=== PATIENT | female | born 1970 | race Caucasian/White ===

== ENCOUNTER 2017-02-20 04:42 | Emergency (ER) | payer BC ==
[2017-02-20] MEDS ORDERED: Ondansetron 4 MG/2 ML SDV IVPUSH ONE (05:00)
[2017-02-20] MEDS ORDERED: HYDROmorphone 1 MG/ML Syringe IVPUSH ONE ×2 (05:00→08:57)
[2017-02-20] MEDS: Sodium Chloride 0.9% 10 ML Syringe FLUSH PRN ×2 (05:07→09:03)
[2017-02-20 05:31] LABS: CHLORIDE,CL 101 mmol/L (98-107); SODIUM,NA 137 mmol/L (136-145)
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
[2017-02-20] MEDS ORDERED: Iopamidol 612 MG/ML 100 ML Bottle IVPUSH ONE (05:52)
[2017-02-20] MEDS ORDERED: HYDROmorphone 1 MG/ML Syringe IM ONE (06:31)
[2017-02-20 08:19] VITALS: BP 104/65
[2017-02-20] MEDS ORDERED: Sodium Chloride 0.9% 1,000 ML IV ONE (08:58)
== END 2017-02-20 09:25 ==
LOC: LL.ED 04:42
DX: K35.3 Acute appendicitis with localized peritonitis (principal); N39.0 Urinary tract infection, site not specified; M19.90 Unspecified osteoarthritis, unspecified site; F17.210 Nicotine dependence, cigarettes, uncomplicated; E03.9 Hypothyroidism, unspecified; E11.9 Type 2 diabetes mellitus without complications; G43.909 Migraine, unspecified, not intractable, without status migrainosus; Z88.2 Allergy status to sulfonamides; Z91.048 Other nonmedicinal substance allergy status; Z98.51 Tubal ligation status
CPT/HCPCS: 36415; 74020; 74177; 80053; 81001; 81025; 85025; 96374; 96375; 96376; 99285; J1170; J2405; J7030; J7050; Q9967

== ENCOUNTER 2017-03-22 08:32 | Emergency (ER) | payer BC ==
[2017-03-22 08:41] VITALS: BP 103/61
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
[2017-03-22 09:43] LABS: CHLORIDE,CL 105 mmol/L (98-107); SODIUM,NA 139 mmol/L (136-145)
[2017-03-22] MEDS ORDERED: Iopamidol 612 MG/ML 100 ML Bottle IVPUSH ONE (11:20)
== END 2017-03-22 12:40 | disposition home or self-care (01) ==
LOC: LL.ED 08:32
DX: R10.31 Right lower quadrant pain (principal); M19.90 Unspecified osteoarthritis, unspecified site; F17.210 Nicotine dependence, cigarettes, uncomplicated; Z88.2 Allergy status to sulfonamides; Z88.8 Allergy status to other drugs, medicaments and biological substances; Z79.899 Other long term (current) drug therapy; Z90.49 Acquired absence of other specified parts of digestive tract
CPT/HCPCS: 36000; 36415; 74177; 80048; 81001; 83605; 85025; 86140; 99284; Q9967

== ENCOUNTER 2017-10-04 10:33 | Observation (INO) | payer BC ==
[2017-10-04] MEDS ORDERED: Famotidine 20 MG/2 ML SDV IVPUSH ONE (10:47)
--- NOTE | 2017-10-04 10:48 | EDM.PDOC ---
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 Annotation/Comment:: Persistent intermittent vaginal spotting and bleeding as above with history of iron deficiency in the past. Iron studies to be conducted with reinitiation of iron supplementation. Mild postoperative bleeding may also be a component with no significant ecchymosis, etc. at operations site. Qualifiers: Anemia type: iron deficiency Iron deficiency anemia type: other iron deficiency Qualified Code(s): D50.8 - Other iron deficiency anemias (5) Hypomagnesemia SNOMED Code(s): 593605990 Code(s): E83.42 - HYPOMAGNESEMIA Status: Acute Priority: Medium Current Visit: Yes Onset Date: 06/12/15 Annotation/Comment:: Reinitiate magnesium oxide supplement with close followup by regular physician (6) Hypoalbuminemia SNOMED Code(s): 420096059 Code(s): E88.09 - [facility] DISORDERS OF PLASMA-PROTEIN METABOLISM, NEC Status: Chronic Priority: Medium Current Visit: Yes Annotation/Comment:: Initiate high-protein Glucerna supplements as snacks (7) Nephrolithiasis SNOMED Code(s): 56386035 Code(s): N20.0 - CALCULUS OF KIDNEY Status: Acute Priority: Medium Current Visit: Yes Onset Date: 10/04/17 Annotation/Comment:: Left-sided nephrolithiasis as above. Nonsymptomatic. Uric acid level is normal. Patient encouraged to drink plenty of fluids in the future to avoid colic. (8) Osteoarthritis SNOMED Code(s): 257383225 Code(s): M19.90 - UNSPECIFIED OSTEOARTHRITIS, UNSPECIFIED SITE Status: Chronic Priority: Medium Current Visit: Yes Annotation/Comment:: History of rheumatoid arthritis with arthritis otherwise stable by patient history. Note recent cervical surgery as above. Qualifiers: Osteoarthritis location: multiple joints Osteoarthritis type: primary Qualified Code(s): M15.0 - Primary generalized (osteo)arthritis (9) COPD (chronic obstructive pulmonary disease) SNOMED Code(s): 69624875 Code(s): J44.9 - CHRONIC OBSTRUCTIVE PULMONARY DISEASE, UNSPECIFIED Status : Chronic Priority: Medium Current Visit: Yes Onset Date: 10/04/17 Annotation/Comment:: COPD by chest x-ray with no recent fever or bronchitic type symptoms. Consider PFTs on an outpatient basis. Qualifiers: COPD type: emphysema Emphysema type: panlobular Qualified Code(s): J43.1 - Panlobular emphysema - Problem List Review Problem List Initiated/Reviewed/Updated: Yes - My Orders Last 24 Hours: My Active Orders 10/04/17 10:46 PROLACTIN [REF] Stat 10/04/17 10:47 Sodium Chloride 0.9% [Saline Flush] 10 ml FLUSH ASDIRECTED PRN Resuscitation Status Stat 10/04/17 10:48 Cardiac Monitoring [RC] . DIRECTED EKG Documentation Completion [RC] ASDIRECTED Oxygen Therapy, ED [RC] CONTINUOUS Peripheral IV Care [RC] . DIRECTED Pulse Oximetry [RC] CONTINUOUS Up With Assistance [RC] PFP Vital Signs [RC] PFP Obtain Past Medical Record [OM.PC] Urgent Peripheral IV Insertion Adult [OM.PC] Stat 10/04/17 10:49 Abdomen Series w Chest 1V [CR] Stat 10/04/17 12:23 Chest PE [Ang Chest] [CT] Stat 10/04/17 Breakfast Nothing per Oral Now Diet [DIET] - Assessment/Plan Admission H&P: Please use this note as an admission H&P Last 24 Hours: My Active Orders 10/04/17 10:46 PROLACTIN [REF] Stat 10/04/17 10:47 Sodium Chloride 0.9% [Saline Flush] 10 ml FLUSH ASDIRECTED PRN Resuscitation Status Stat 10/04/17 10:48 Cardiac Monitoring [RC] . DIRECTED EKG Documentation Completion [RC] ASDIRECTED Oxygen Therapy, ED [RC] CONTINUOUS Peripheral IV Care [RC] . DIRECTED Pulse Oximetry [RC] CONTINUOUS Up With Assistance [RC] PFP Vital Signs [RC] PFP Obtain Past Medical Record [OM.PC] Urgent Peripheral IV Insertion Adult [OM.PC] Stat 10/04/17 10:49 Abdomen Series w Chest 1V [CR] Stat 10/04/17 12:23 Chest PE [Ang Chest] [CT] Stat 10/04/17 Breakfast Nothing per Oral Now Diet [DIET] Assessment:: As above Plan: As above. Extensive precautions were given to the patient, who is in agreement with the treatment plan. The patient's condition is stable enough for observation status and general supervision. Oamri vivas physician assuming care in the a.m.
[2017-10-04 11:19] LABS: CHLORIDE,CL 102 mmol/L (98-107); SODIUM,NA 138 mmol/L (136-145)
[2017-10-04] MEDS ORDERED: Iopamidol 755 Mg/ML 100 ML Bottle IVPUSH ONE (12:33)
[2017-10-04] MEDS ORDERED: Famotidine 20 MG/2 ML SDV ONE (13:21)
[2017-10-04] MEDS ORDERED: Sodium Chloride 0.9% 10 ML Syringe FLUSH PRN (14:57)
[2017-10-04] MEDS ORDERED: Acetaminophen/HYDROcodone 325-7.5 MG Tab PO PRN (14:57)
[2017-10-04] MEDS ORDERED: Magnesium Citrate Solution 296 ML Bottle PO ONE (15:00)
[2017-10-04] MEDS ORDERED: Polyethylene Glycol 3350 Powder 17 GM Packet PO ONE (15:00)
[2017-10-04] MEDS: Acetaminophen 325 MG Tab PO PRN ×2 (16:03→21:32)
[2017-10-04] MEDS: Gabapentin 300 MG Cap PO SCH (17:12)
[2017-10-04] MEDS: Magnesium Oxide 400 MG Tab PO SCH (17:12)
[2017-10-04] MEDS: Baclofen 10 MG Tab PO SCH (17:12)
[2017-10-04] MEDS: Ferrous Sulfate 325 MG Tab PO SCH (17:12)
[2017-10-04] MEDS: Ondansetron 4 MG Tab.DIS PO PRN (18:01)
[2017-10-04] MEDS: Furosemide 40 MG/4 ML VIAL IVPUSH SCH (18:42)
[2017-10-04] MEDS: Sodium Chloride 0.9% 10 ML Syringe FLUSH PRN (18:42)
[2017-10-04] MEDS: Amitriptyline 25 MG Tab PO SCH (19:47)
[2017-10-04] MEDS: Potassium Chloride 20 MEQ Tab.ER PO SCH (19:47)
[2017-10-05] MEDS: Acetaminophen 325 MG Tab PO PRN ×2 (02:57→20:35)
[2017-10-05] MEDS: Sodium Chloride 0.9% 10 ML Syringe FLUSH PRN (02:57)
[2017-10-05] MEDS: Furosemide 40 MG/4 ML VIAL IVPUSH SCH ×3 (02:57→17:31)
[2017-10-05 07:52] LABS: CHLORIDE,CL 99 mmol/L (98-107); SODIUM,NA 139 mmol/L (136-145)
[2017-10-05] MEDS: Baclofen 10 MG Tab PO SCH ×2 (09:25→17:28)
[2017-10-05] MEDS: Gabapentin 300 MG Cap PO SCH ×3 (09:25→17:28)
[2017-10-05] MEDS: Omeprazole 20 MG Cap.CR PO SCH (09:26)
[2017-10-05] MEDS: Ferrous Sulfate 325 MG Tab PO SCH ×2 (09:26→17:41)
[2017-10-05] MEDS: Potassium Chloride 20 MEQ Tab.ER PO SCH ×3 (09:26→17:28)
[2017-10-05] MEDS: Magnesium Oxide 400 MG Tab PO SCH (17:29)
--- NOTE | 2017-10-05 18:33 | PCM.PN ---
- General Info Date of Service: 10/05/17 Admission Dx/Problem (Free Text): Syncope Subjective Update: No further episodes of syncope noted. Has had several bowel movements but still feels constipated. Functional Status: Reports: Pain Controlled, Tolerating Diet, Ambulating, Urinating. Denies: New Symptoms Pain Score: 0 - Review of Systems General: Reports: Fatigue. Denies: Fever, Chills, Night Sweats, Appetite HEENT: Reports: No Symptoms Pulmonary: Reports: No Symptoms Cardiovascular: Reports: No Symptoms Gastrointestinal: Reports: Constipation, Decreased Appetite. Denies: Abdominal Pain, Diarrhea, Difficulty Swallowing, Hematochezia, Nausea, Vomiting Genitourinary: Reports: No Symptoms Musculoskeletal: Reports: Other (No change in baseline pain. Recent cervical fusion, has R.A. ) Skin: Reports: No Symptoms Neurological: Denies: Confusion, Dizziness, Headache, Syncope, Difficulty Walking, Weakness, Change in Speech, Gait Disturbance Psychiatric: Reports: No Symptoms - Patient Data Vitals - Most Recent: Last Vital Signs Temp 37.1 C 10/05/17 16:00 Pulse 100 10/05/17 16:00 Resp 18 10/05/17 16:00 BP 118/78 10/05/17 16:00 Pulse Ox 94 L 10/05/17 16:00 Weight - Most Recent: 72.892 kg I&O - Last 24 Hours: Intake & Output 10/05/17 10/05/17 10/05/17 06:59 14:59 22:59 Intake Total 1080 300 Output Total 5767 978 5928 Balance -1100 480 -700 Lab Results Last 24 Hours: Laboratory Results - last 24 hr 10/04/17 10/04/17 10/05/17 Range/Units 10:46 21:15 06:37 WBC 8.1 (4.0-10.2) K/uL RBC 4.05 (3.77-5.09) M/uL Hgb 12.3 D (11.7-15.5) g/dL Hct 37.1 (34.0-46.0) % MCV 91.6 (84.0-98.0) fL MCH 30.4 (28.2-33.3) pg MCHC 33.2 (31.7-36.0) g/dL RDW 12.4 (11.2-14.1) % Plt Count 367 H (150-350) K/uL Neut % (Auto) 66.3 (45.0-80.0) % Lymph % (Auto) 19.3 (10.0-50.0) % [place] % (Auto) 9.0 (2.0-14.0) % Eos % (Auto) 5.2 H (0.0-5.0) % Baso % (Auto) 0.2 (0.0-2.0) % Neut # (Auto) 5.36 (1.40-7.00) K/uL Lymph # (Auto) 1.56 (0.50-3.50) K/uL [place]row # (Auto) 0.73 (0.00-1.00) K/uL Eos # (Auto) 0.42 (0.00-0.50) K/uL Baso # (Auto) 0.02 (0.00-0.20) K/uL D-Dimer, Quantitative (0-400) ng/mL Sodium (136-145) mmol/L Potassium (3.5-5.1) mmol/L Chloride (98-107) mmol/L Carbon Dioxide (21.0-32.0) mmol/L BUN (7-18) mg/dL Creatinine (0.51-1.17) mg/dL Est Cr Clr Drug Dosing mL/min Estimated GFR (MDRD) mL/min Glucose (74-106) mg/dL Hemoglobin A1c (4.3-5.7) % Calcium (8.5-10.1) mg/dL Total Bilirubin (0.2-1.0) mg/dL AST (15-37) U/L ALT (12-78) U/L Alkaline Phosphatase (46-116) IU/L Creatine Kinase 65 (26-308) U/L Creatine Kinase Index 1.8 (0.0-2.5) % CK-MB (CK-2) 1.20 (0.00-3.60) ng/mL Troponin I 0.000 (0.000-0.056) ng/mL Total Protein (6.4-8.2) g/dL Albumin (3.4-5.0) g/dL Triglycerides (30-150) mg/dL Cholesterol (100-200) mg/dL LDL Cholesterol, Calc (0-100) mg/dL HDL Cholesterol (40-60) mg/dL Prolactin 22.7 ng/mL 10/05/17 10/05/17 10/05/17 Range/Units 06:37 06:37 06:37 WBC (4.0-10.2) K/uL RBC (3.77-5.09) M/uL Hgb (11.7-15.5) g/dL Hct (34.0-46.0) % MCV (84.0-98.0) fL MCH (28.2-33.3) pg MCHC (31.7-36.0) g/dL RDW (11.2-14.1) % Plt Count (150-350) K/uL Neut % (Auto) (45.0-80.0) % Lymph % (Auto) (10.0-50.0) % [place]row % (Auto) (2.0-14.0) % Eos % (Auto) (0.0-5.0) % Baso % (Auto) (0.0-2.0) % Neut # (Auto) (1.40-7.00) K/uL Lymph # (Auto) (0.50-3.50) K/uL Morrow # (Auto) (0.00-1.00) K/uL Eos # (Auto) (0.00-0.50) K/uL Baso # (Auto) (0.00-0.20) K/uL D-Dimer, Quantitative 1790 H (0-400) ng/mL Sodium 139 (136-145) mmol/L Potassium 3.9 (3.5-5.1) mmol/L Chloride 99 (98-107) mmol/L Carbon Dioxide 30.3 (21.0-32.0) mmol/L BUN 13 (7-18) mg/dL Creatinine 0.89 (0.51-1.17) mg/dL Est Cr Clr Drug Dosing 65.31 mL/min Estimated GFR (MDRD) > 60 mL/min Glucose 99 (74-106) mg/dL Hemoglobin A1c 5.7 (4.3-5.7) % Calcium 9.0 (8.5-10.1) mg/dL Total Bilirubin 0.3 (0.2-1.0) mg/dL AST 29 (15-37) U/L ALT 23 (12-78) U/L Alkaline Phosphatase 69 (46-116) IU/L Creatine Kinase 50 (26-308) U/L Creatine Kinase Index 1.6 (0.0-2.5) % CK-MB (CK-2) 0.80 (0.00-3.60) ng/mL Troponin I 0.000 (0.000-0.056) ng/mL Total Protein 8.5 H (6.4-8.2) g/dL Albumin 3.3 L (3.4-5.0) g/dL Triglycerides 149 (30-150) mg/dL Cholesterol 162 (100-200) mg/dL LDL Cholesterol, Calc 73 (0-100) mg/dL HDL Cholesterol 59 (40-60) mg/dL Prolactin ng/mL [facility] Results Last 24 Hours: Microbiology 10/04/17 19:10 Stool Occult Blood (KLEBER) - Final Stool / Feces NEGATIVE OCCULT BLOOD Med Orders - Current: Current Medications Acetaminophen (Tylenol) 650 mg PO Q4HR PRN PRN Reason: Pain Last Admin: 10/05/17 02:57 Dose: 650 mg Amitriptyline HCl (Elavil) 50 mg PO BEDTIME [facility] Last Admin: 10/04/17 19:47 Dose: 50 mg Baclofen (Lioresal) 10 mg PO BID [facility] Last Admin: 10/05/17 17:28 Dose: 10 mg Ferrous Sulfate (Ferrous Sulfate) 325 mg PO BIDMEALS [facility] Last Admin: 10/05/17 17:41 Dose: 325 mg Furosemide (Lasix) 40 mg IVPUSH Q8H [facility] Last Admin: 10/05/17 17:31 Dose: 40 mg Gabapentin (Neurontin) 300 mg PO TID [facility] Last Admin: 10/05/17 17:28 Dose: 300 mg Magnesium Oxide (Magnesium Oxide) 400 mg PO QPM [facility] Last Admin: 10/05/17 17:29 Dose: 400 mg Omeprazole (Omeprazole) 20 mg PO DAILY [facility] Last Admin: 10/05/17 09:26 Dose: 20 mg Ondansetron HCl (Zofran Odt) 4 mg PO QID PRN PRN Reason: Nausea Last Admin: 10/04/17 18:01 Dose: 4 mg Potassium Chloride (Klor-Con M20) 20 meq PO TID [facility] Last Admin: 10/05/17 17:28 Dose: 20 meq Sodium Chloride (Saline Flush) 10 ml FLUSH ASDIRECTED PRN PRN Reason: Keep Vein Open Last Admin: 10/05/17 02:57 Dose: 10 ml Sodium Chloride (Saline Flush) 10 ml FLUSH Q12HR PRN PRN Reason: Keep Vein Open Discontinued Medications Hydrocodone Bitart/Acetaminophen ([place] 325-7.5 Mg) 1 tab PO Q4HR PRN PRN Reason: Pain (moderate 4-6) Famotidine (Pepcid) 40 mg IVPUSH ONETIME ONE Stop: 10/04/17 10:48 Last Admin: 10/04/17 13:22 Dose: 40 mg Famotidine (Pepcid) Confirm Administered Dose 40 mg .ROUTE .STK-MED ONE Stop: 10/04/17 13:22 Last Admin: 10/04/17 14:21 Dose: Not Given Iopamidol (Isovue-370 (76%)) 100 ml IVPUSH ONETIME ONE Stop: 10/04/17 12:34 Last Admin: 10/04/17 13:02 Dose: 100 ml Magnesium Citrate (Citrate Of Magnesia) 0 ml PO ONETIME ONE Stop: 10/04/17 15:01 Last Admin: 10/04/17 15:58 Dose: 296 ml Polyethylene Glycol (Miralax) 17 gm PO ONETIME ONE Stop: 10/04/17 15:01 Last Admin: 10/04/17 15:58 Dose: 17 gm - Exam General: Alert, Oriented, Cooperative, No Acute Distress HEENT: Pupils Equal, Pupils Reactive, EOMI, Mucous Membr. Moist/[place] Neck: Other (Has collar in place due to recent surgery) Lungs: Clear to Auscultation, Normal Respiratory Effort Cardiovascular: Regular Rate, Regular Rhythm GI/Abdominal Exam: Normal Bowel Sounds, Soft, Non-Tender, No Distention (Female) Exam: Deferred Back Exam: No: CVA Tenderness (L), CVA Tenderness (R) Extremities: Normal Inspection, Normal Range of Motion, Non-Tender, No Pedal Edema, Normal Capillary Refill Peripheral Pulses: 2+: Radial (L), Radial (R) Skin: Warm, Dry, Intact Neurological: No New Focal Deficit - Problem List & Annotations (1) Syncope SNOMED Code(s): 340209389 Code(s): R55 - SYNCOPE AND COLLAPSE Status: Acute Priority: High Current Visit: Yes Onset Date: 10/02/17 Qualifiers: Syncope type: unspecified Qualified Code(s): R55 - Syncope and collapse Annotation/Comment:: Recurrent syncope. No observed episodes since admission to our facility. Echocardiogram unremarkable. Patient should have a cardiac workup including possible cardiology consultation, Cardiolite stress test, etc. RO[place] once she has recovered from her cervical surgery. Initiated standard rule out [place] orders, however no anginal complaints with chest pain protocol not initiated in the emergency room. Today requested that nurses ambulate patient frequently and continue to observe for changes/recurrent syncope (2) Constipation SNOMED Code(s): 91368799 Code(s): K59.00 - CONSTIPATION, UNSPECIFIED Status: Acute Priority: High Current Visit: Yes Qualifiers: Constipation type: drug induced constipation Qualified Code(s): K59.03 - Drug induced constipation Annotation/Comment:: Second postoperative constipation likely secondary to narcotics. Initiate magnesium sulfate and MiraLAX therapy. No barium enema indicated for the time being and continue to observe closely. Several small bowel movements reported 10/05 (3) Anemia SNOMED Code(s): 994954335 Code(s): D64.9 - ANEMIA, UNSPECIFIED Status: Acute Priority: Medium Current Visit: Yes Onset Date: 10/04/17 Qualifiers: Anemia type: iron deficiency Iron deficiency anemia type: other iron deficiency Qualified Code(s): D50.8 - Other iron deficiency anemias Annotation/Comment:: Persistent intermittent vaginal spotting and bleeding as above with history of iron deficiency in the past. Iron studies to be conducted with reinitiation of iron supplementation. Mild postoperative bleeding may also be a component with no significant ecchymosis, etc. at operations site. (4) D-dimer, elevated SNOMED Code(s): 875130216 Code(s): R79.89 - OTHER SPECIFIED ABNORMAL FINDINGS OF BLOOD CHEMISTRY Status: Acute Priority: High Current Visit: Yes Onset Date: 10/04/17 Annotation/Comment:: Negative CT of the chest as above. Venous Doppler studies negative. No Lovenox therapy for now secondary to recent cervical surgery as above. Close follow-up by regular providers after discharge recommended. (5) Hypomagnesemia SNOMED Code(s): 869720858 Code(s): E83.42 - HYPOMAGNESEMIA Status: Acute Priority: Medium Current Visit: Yes Onset Date: 06/12/15 Annotation/Comment:: Reinitiate magnesium oxide supplement with close followup by regular physician (6) Nephrolithiasis SNOMED Code(s): 27458211 Code(s): N20.0 - CALCULUS OF KIDNEY Status: Acute Priority: Medium Current Visit: Yes Onset Date: 10/04/17 Annotation/Comment:: Left-sided nephrolithiasis as above. Nonsymptomatic. Uric acid level is normal. Patient encouraged to drink plenty of fluids in the future to avoid colic. (7) COPD (chronic obstructive pulmonary disease) SNOMED Code(s): 90015432 Code(s): J44.9 - CHRONIC OBSTRUCTIVE PULMONARY DISEASE, UNSPECIFIED Status : Chronic Priority: Medium Current Visit: Yes Onset Date: 10/04/17 Qualifiers: COPD type: emphysema Emphysema type: panlobular Qualified Code(s): J43.1 - Panlobular emphysema Annotation/Comment:: COPD by chest x-ray with no recent fever or bronchitic type symptoms. Consider PFTs on an outpatient basis. (8) Hypoalbuminemia SNOMED Code(s): 498574735 Code(s): E88.09 - OTH DISORDERS OF PLASMA-PROTEIN METABOLISM, NEC Status: Chronic Priority: Medium Current Visit: Yes Annotation/Comment:: Initiate high-protein Glucerna supplements as snacks (9) Osteoarthritis SNOMED Code(s): 076403778 Code(s): M19.90 - UNSPECIFIED OSTEOARTHRITIS, UNSPECIFIED SITE Status: Chronic Priority: Medium Current Visit: Yes Qualifiers: Osteoarthritis location: multiple joints Osteoarthritis type: primary Qualified Code(s): M15.0 - Primary generalized (osteo)arthritis Annotation/Comment:: History of rheumatoid arthritis with arthritis otherwise stable by patient history. Note recent cervical surgery as above. - Problem List Review Problem List Initiated/Reviewed/Updated: Yes - My Orders Last 24 Hours: My Active Orders 10/05/17 12:55 Ambulate [RC] ASDIRECTED 10/05/17 12:57 VITAMIN D 25-HYROXY (D2, D3) [REF] Routine 10/05/17 Lunch Regular Diet [DIET] - Assessment Assessment:: History of syncope in patient with recent surgeries. No recurrence while being observed in our facilities. - Plan Plan:: Continue to monitor for changes. Repeat labs in AM. Consider discharge tomorrow with close follow up as outpatient if patient continues to remain asymptomatic.
[2017-10-05] MEDS: Amitriptyline 25 MG Tab PO SCH (19:53)
[2017-10-06] MEDS: Furosemide 40 MG/4 ML VIAL IVPUSH SCH (01:00)
[2017-10-06 07:49] LABS: CHLORIDE,CL 99 mmol/L (98-107); SODIUM,NA 138 mmol/L (136-145)
[2017-10-06] MEDS: Ferrous Sulfate 325 MG Tab PO SCH (08:09)
[2017-10-06] MEDS: Omeprazole 20 MG Cap.CR PO SCH (08:10)
[2017-10-06] MEDS: Gabapentin 300 MG Cap PO SCH (08:10)
[2017-10-06] MEDS: Potassium Chloride 20 MEQ Tab.ER PO SCH (08:10)
[2017-10-06] MEDS: Baclofen 10 MG Tab PO SCH (08:10)
[2017-10-06] MEDS: Acetaminophen 325 MG Tab PO PRN (08:18)
[2017-10-06] MEDS: Ondansetron 4 MG Tab.DIS PO PRN (08:20)
--- NOTE | 2017-10-06 09:10 | PCM.DCSUM1 ---
Discharge Summary - Hospital Course HPI Initial Comments: See emergency room note/H&P Brief History: See emergency room note/admission H&P - Discharge Data Discharge Date: 10/06/17 Discharge Disposition: Home, Self-Care 01 Condition: Good - Discharge Diagnosis/Problem(s) (1) Syncope SNOMED Code(s): 249902776 ICD Code: R55 - SYNCOPE AND COLLAPSE Status: Acute Priority: High Current Visit: Yes Onset Date: 10/02/17 Problem Details: Recurrent syncope prior to admission with no repeat episodes since admission to our facility. D- dimer patient continues to improve slowly with negative CTA of the chest and venous Doppler studies of the lower extremities as below. Preliminary verbal report of her Echocardiogram was also unremarkable with ejection fraction of 62% .. Patient should have a cardiac workup including possible cardiology consultation, Cardiolite stress test versus Dobutamine Cardiolite stress test, etc. ROOPA. She already has a follow-up appointment with her neurosurgeon on 11/17 by her history. Negative workup for acute MD with no chest pain or anginal type symptoms during this hospitalization. In addition, note, no anginal complaints prior to admission with chest pain protocol not initiated in the emergency room. Patient did ambulate during this hospitalization without difficulties, including orthostasis, etc. Close follow-up by regular providers as per discharge instructions. The patient was provided a release of medical records form prior to discharge for further application to [employer]. She also already has a work excuse until 11/17, and does not need another excuse by her history. Note negative prolactin level with no clinical evidence of seizures. In addition, note normal glycosylated hemoglobin and lipid panel during this hospitalization. Qualifiers: Syncope type: unspecified Qualified Code(s): R55 - Syncope and collapse (2) D-dimer, elevated SNOMED Code(s): 377368988 ICD Code: R79.89 - OTHER SPECIFIED ABNORMAL FINDINGS OF BLOOD CHEMISTRY Status: Acute Priority: High Current Visit: Yes Onset Date: 10/04/17 Problem Details: As above. No Lovenox therapy during this hospitalization with her neurosurgeon also recommending avoidance of NSAIDs secondary to recent cervical surgery as per emergency room note. (3) Constipation SNOMED Code(s): 60004210 ICD Code: K59.00 - CONSTIPATION, UNSPECIFIED Status: Acute Priority: High Current Visit: Yes Problem Details: Severe postoperative constipation likely secondary to narcotics with excellent results with magnesium sulfate and MiraLAX therapy shortly after admission. Excellent bowel movement earlier this morning by her history. Her current abdominal pain, nausea, etc. She does agree to discontinuation of her narcotic medications with continued Tylenol use as per discharge instructions. Mild WBC elevation with no evidence of infection. Also note mild thrombocytosis. Qualifiers: Constipation type: drug induced constipation Qualified Code(s): K59.03 - Drug induced constipation (4) Anemia SNOMED Code(s): 732728047 ICD Code: D64.9 - ANEMIA, UNSPECIFIED Status: Acute Priority: Medium Current Visit: Yes Onset Date: 10/04/17 Problem Details: Newly diagnosed iron deficiency anemia with initiation of iron sulfate replacement during this hospitalization. Recommend repeat iron studies in about one month. Note history of persistent intermittent vaginal spotting and bleeding as per emergency room note with her regular provider to determine whether a repeat [facility] consultation is needed. Note negative Hemoccult during this hospitalization. Qualifiers: Anemia type: iron deficiency Iron deficiency anemia type: other iron deficiency Qualified Code(s): D50.8 - Other iron deficiency anemias (5) Hypomagnesemia SNOMED Code(s): 386535504 ICD Code: E83.42 - HYPOMAGNESEMIA Status: Acute Priority: Medium Current Visit: Yes Onset Date: 06/12/15 Problem Details: Reinitiated magnesium oxide supplement during this hospitalization with repeat magnesium level to be conducted at followup by regular physician. Continued magnesium oxide therapy may be required, if patient still has problems with constipation after discontinuation of her narcotic medications. Further GI workup depending on her clinical course. (6) Hypoalbuminemia SNOMED Code(s): 091916080 ICD Code: E88.09 - OTH DISORDERS OF PLASMA-PROTEIN METABOLISM, NEC Status: Chronic Priority: Medium Current Visit: Yes Problem Details: Improved since initiation of high-protein Glucerna supplements as snacks during this hospitalization. Continue after discharge with close follow-up by regular provider (7) Nephrolithiasis SNOMED Code(s): 50366304 ICD Code: N20.0 - CALCULUS OF KIDNEY Status: Acute Priority: Medium Current Visit: Yes Onset Date: 10/04/17 Problem Details: Incidental Left- sided nephrolithiasis noted on CTA of her chest. Nonsymptomatic. Uric acid level is normal. Patient encouraged to drink plenty of fluids in the future to avoid colic. (8) Osteoarthritis SNOMED Code(s): 820034768 ICD Code: M19.90 - UNSPECIFIED OSTEOARTHRITIS, UNSPECIFIED SITE Status: Chronic Priority: Medium Current Visit: Yes Problem Details: History of rheumatoid arthritis with arthritis otherwise stable by patient history. Note recent cervical surgery as above. Qualifiers: Osteoarthritis location: multiple joints Osteoarthritis type: primary Qualified Code(s): M15.0 - Primary generalized (osteo)arthritis (9) COPD (chronic obstructive pulmonary disease) SNOMED Code(s): 70452684 ICD Code: J44.9 - CHRONIC OBSTRUCTIVE PULMONARY DISEASE, UNSPECIFIED Status : Chronic Priority: Medium Current Visit: Yes Onset Date: 10/04/17 Problem Details: COPD by acute abdominal x-rays on admission with no recent fever or bronchitic type symptoms. Consider PFTs on an outpatient basis. Qualifiers: COPD type: emphysema Emphysema type: panlobular Qualified Code(s): J43.1 - Panlobular emphysema (10) Tobacco abuse counseling SNOMED Code(s): 717820743, 493000607, 982695259 ICD Code: Z71.6 - TOBACCO ABUSE COUNSELING Status: Chronic Priority: Medium Current Visit: No Problem Details: Continued tobacco smoke exposure from her . Stop all tobacco exposure ROOPA as directed/per provided information and consider contacting [employer] [facility], etc.. - Patient Summary/Data Operative Procedure(s) Performed: None Complications: None Consults: None Labs Pending at D/C: Final echocardiogram report Recommended Follow-up Testing/Procedures: As per discharge instructions Planned Operative Procedure(s) after DC: None Hospital Course: The patient was admitted to observation status on telemetry with negative workup for acute MD. No neurological deficits with neurological checks conducted with vitals. No evidence of recurrence of her syncopal episodes, etc. during this hospitalization as above. No further complications. Otherwise treatment as above. - Patient Instructions Diet: Heart Healthy Diet Diet, Other: High-protein Glucerna snacks twice a day Activity: As Tolerated (And directed by your neurosurgeon. Continued strict compliance with cervical collar as previously directed) Driving: Do Not Drive (Secondary to recent neck surgery) Showering/Bathing: May Shower Wound/Incision Care: Keep Operative Site/Wound Site Clean and Dry (With wound care as previously directed by your neurosurgeon) Notify Provider of: Fever, Increased Pain, Swelling and Redness, Drainage, Nausea and/or Vomiting Other/Special Instructions: 1. Follow up with your regular provider in one week with recommended repeat CBC, comprehensive metabolic panel, magnesium level , d-dimer and EKG. Discuss further cardiac workup ROOPA including possible Cardiolite stress test, cardiology referral, etc.. Also discuss your anemia and continued intermittent vaginal spotting at that time with consideration of [facility] referral. 2. Otherwise follow-up up with your neurosurgeon as already scheduled on. 11/17. 3. Recommend repeat TIBC panel, Transferin level, and ferritin level in 4 weeks to determine whether iron sulfate supplementation should be continued. 4. Discuss with regular provider possibility of lung function tests/PFTs secondary to x-ray findings indicating some possible COPD. Congratulations about stopping smoking and do not reinitiate. 5. Stop all tobacco exposure ROOPA as directed with counselling, information, etc. given - Discharge Plan Home Medications: Home Meds Amitriptyline [Elavil] 50 mg PO BEDTIME 02/20/17 [History] Gabapentin [Neurontin] 300 mg PO TID 02/20/17 [History] Acetaminophen 650 mg PO Q4HR PRN 10/04/17 [History] Baclofen 10 mg PO BID 10/04/17 [History] Hydrocodone/Acetaminophen [[place] 7.5-325 Tablet] 1 tab PO Q4HR PRN 10/04/17 [ History] Hydrocodone/Acetaminophen [[place] 7.5-325 Tablet] 2 tab PO Q4HR PRN 10/04/17 [ History] Omeprazole 20 mg PO DAILY 10/04/17 [History] Ondansetron HCl [Ondansetron] 4 mg PO QID PRN 10/04/17 [History] Patient Handouts: Chronic Obstructive Pulmonary Disease, [id number], Syncope , [id number] Forms: ED Department Discharge Referrals: Lima Ontiveros PA-C [Primary Care Provider] - - Discharge Summary/Plan Comment DC Time >30 min.: Yes (Coordination of care ) Discharge Summary/Plan Comment: As above. Extensive precautions were given to the patient, who is in agreement with the treatment plan. See Patient Instructions for further treatment and plan. - General Info Date of Service: 10/06/17 Admission Dx/Problem (Free Text: Syncope Functional Status: Reports: Pain Controlled, Tolerating Diet, Ambulating, Urinating, New Symptoms. Denies: Incentive Spirometry Numeric/FACES Score: 4 (Stable postoperative neck pain.) - Review of Systems General: Reports: No Symptoms. Denies: Fever, Weakness, Fatigue, Malaise, Chills, Night Sweats, Appetite HEENT: Reports: No Symptoms. Denies: Ear Pain, Eye Pain, Headaches, Post Nasal Drip, Sinus Congestion, Sore Throat, Rhinitis, Visual Changes Pulmonary: Reports: No Symptoms. Denies: Shortness of Breath, Pleuritic Chest Pain, Cough, Sputum Cardiovascular: Reports: No Symptoms. Denies: Chest Pain, Palpitations, Dyspnea on Exertion, Orthopnea, PND, Edema, Lightheadedness Gastrointestinal: Reports: No Symptoms. Denies: Abdominal Pain, Constipation, Decreased Appetite, Diarrhea, Difficulty Swallowing, Flatus, Hematochezia, Melena, Nausea, Vomiting Genitourinary: Reports: No Symptoms. Denies: Dysuria, Frequency, Burning, Urgency, Hematuria, Retention, Flank Pain Musculoskeletal: Reports: Neck Pain (Stable postoperative). Denies: Shoulder Pain, Arm Pain, Hand Pain, Back Pain, Leg Pain, Joint Pain Skin: Reports: Bruising (As below), Other (Stable mild ecchymosis and postoperative changes and anterior cervical region with no evidence of significant infection. Patient wearing cervical collar.). Denies: Pallor, Diaphoresis, Rash Neurological: Reports: No Symptoms. Denies: Confusion, Dizziness, Headache, Numbness, Paresthesia, Seizure, Syncope, Tingling, Trouble Speaking, Difficulty Walking, Weakness, Gait Disturbance Psychiatric: Reports: No Symptoms. Denies: Confusion, Depression, Anxiety, Agitation, Hallucinations - Patient Data Vitals - Most Recent: Last Vital Signs Temp 36.3 C 10/06/17 00:00 Pulse 92 10/06/17 00:00 Resp 16 10/06/17 00:00 BP 130/84 10/06/17 00:00 Pulse Ox 93 L 10/06/17 00:00 Vital Signs (72 hours) 10/04/17 10/04/17 10/04/17 10:35 10:39 10:40 Temperature [ 36.7 C 36.7 C Oral] Temperature [ Temporal] Pulse, 92 87 Peripheral [ Right Pulse Oximetry] Respiratory 16 20 Rate Blood Pressure 132/64 132/76 [Right Upper Arm] O2 Sat by Pulse 100 100 Oximetry O2 Sat by Pulse 100 Oximetry [ Nasal Cannula] 10/04/17 10/04/17 10/04/17 10:54 11:26 11:40 Temperature [ Oral] Temperature [ Temporal] Pulse, 89 80 80 Peripheral [ Right Pulse Oximetry] Respiratory 18 18 20 Rate Blood Pressure 121/66 113/60 123/73 [Right Upper Arm] O2 Sat by Pulse 100 100 99 Oximetry O2 Sat by Pulse Oximetry [ Nasal Cannula] 10/04/17 10/04/17 10/04/17 11:56 12:30 13:00 Temperature [ 36.8 C Oral] Temperature [ Temporal] Pulse, 78 80 82 Peripheral [ Right Pulse Oximetry] Respiratory 18 20 20 Rate Blood Pressure 117/56 L 122/72 118/79 [Right Upper Arm] O2 Sat by Pulse 100 100 100 Oximetry O2 Sat by Pulse Oximetry [ Nasal Cannula] 10/04/17 10/04/17 10/04/17 13:30 14:57 20:00 Temperature [ 36.5 C Oral] Temperature [ Temporal] Pulse, 87 89 Peripheral [ Right Pulse Oximetry] Respiratory 16 Rate Blood Pressure 128/67 122/79 [Right Upper Arm] O2 Sat by Pulse 100 98 100 Oximetry O2 Sat by Pulse 98 Oximetry [ Nasal Cannula] 10/05/17 10/05/17 10/05/17 00:00 04:00 08:00 Temperature [ Oral] Temperature [ 36.8 C 36.5 C 35.8 C Temporal] Pulse, 82 78 88 Peripheral [ Right Pulse Oximetry] Respiratory 18 16 17 Rate Blood Pressure 128/79 126/79 120/73 [Right Upper Arm] O2 Sat by Pulse 97 96 100 Oximetry O2 Sat by Pulse Oximetry [ Nasal Cannula] 10/05/17 10/05/17 10/05/17 12:03 16:00 20:00 Temperature [ 36.9 C 37.1 C 36.6 C Oral] Temperature [ Temporal] Pulse, 89 100 103 H Peripheral [ Right Pulse Oximetry] Respiratory 18 18 Rate Blood Pressure 122/75 118/78 123/77 [Right Upper Arm] O2 Sat by Pulse 97 94 L 95 Oximetry O2 Sat by Pulse Oximetry [ Nasal Cannula] 10/06/17 00:00 Temperature [ Oral] Temperature [ 36.3 C Temporal] Pulse, 92 Peripheral [ Right Pulse Oximetry] Respiratory 16 Rate Blood Pressure 130/84 [Right Upper Arm] O2 Sat by Pulse 93 L Oximetry O2 Sat by Pulse Oximetry [ Nasal Cannula] Weight - Most Recent: 78.67 kg I&O - Last 24 hours: Intake & Output 10/05/17 10/06/17 10/06/17 22:59 06:59 14:59 Intake Total 300 Output Total 1000 1000 Balance -700 -1000 Imaging Impressions - Last 24 hrs: court monitor shows normal sinus rhythm with average heart rate in the 70s with no ectopy or arrhythmia Preliminary verbal report on 10/04/17 from echocardiogram ict support technicians shows normal echocardiogram results including ejection fraction of 62% with no pulmonary hypertension, valvular disease, etc. Telephone consultation at 13:43 hours with the radiology department at [facility] with preliminary verbal report of CTA of the chest on . Some nonspecific mediastinal lymphadenopathy noted with borderline cardiomegaly and not clinically significant nephrolithiasis in the left renal pelvis. Study is negative for PE. Final radiological report confirms above findings Venous Doppler studies of the lower extremities bilaterally on 10/04/17 were negative for DVT Acute abdominal x-ray on 10/04/17 shows evidence of moderate diffuse stool with nonspecific bowel gaseous pattern with no evidence of fluid levels, ileus, obstruction, free air, cardiomegaly, CHF, urinary infiltrates, pneumothorax, etc. Note moderate COPD changes, osteoarthritis, and mild scoliosis were present. Lab Results - Last 24 hrs: Laboratory Results - last 24 hr 10/06/17 10/06/17 Range/Units 07:19 07:19 WBC 10.5 H (4.0-10.2) K/uL RBC 4.41 (3.77-5.09) M/uL Hgb 13.3 (11.7-15.5) g/dL Hct 40.1 (34.0-46.0) % MCV 90.9 (84.0-98.0) fL MCH 30.2 (28.2-33.3) pg MCHC 33.2 (31.7-36.0) g/dL RDW 12.6 (11.2-14.1) % Plt Count 404 H (150-350) K/uL Neut % (Auto) 66.2 (45.0-80.0) % Lymph % (Auto) 21.7 (10.0-50.0) % Gove % (Auto) 8.9 (2.0-14.0) % Eos % (Auto) 2.9 (0.0-5.0) % Baso % (Auto) 0.3 (0.0-2.0) % Neut # (Auto) 6.92 (1.40-7.00) K/uL Lymph # (Auto) 2.27 (0.50-3.50) K/uL Gove # (Auto) 0.93 (0.00-1.00) K/uL Eos # (Auto) 0.30 (0.00-0.50) K/uL Baso # (Auto) 0.03 (0.00-0.20) K/uL Sodium 138 (136-145) mmol/L Potassium 4.0 (3.5-5.1) mmol/L Chloride 99 (98-107) mmol/L Carbon Dioxide 31.6 (21.0-32.0) mmol/L BUN 19 H (7-18) mg/dL Creatinine 0.98 (0.51-1.17) mg/dL Est Cr Clr Drug Dosing 59.31 mL/min Estimated GFR (MDRD) > 60 mL/min Glucose 108 H (74-106) mg/dL Calcium 9.7 (8.5-10.1) mg/dL Laboratory Tests 10/04/17 10/04/17 10/04/17 Range/Units 10:46 10:46 10:46 WBC 10.0 (4.0-10.2) K/uL RBC 3.40 L (3.77-5.09) M/uL Hgb 10.5 L D (11.7-15.5) g/dL Hct 31.8 L (34.0-46.0) % MCV 93.5 (84.0-98.0) fL MCH 30.9 (28.2-33.3) pg MCHC 33.0 (31.7-36.0) g/dL RDW 12.4 (11.2-14.1) % Plt Count 317 (150-350) K/uL Neut % (Auto) 62.5 (45.0-80.0) % Lymph % (Auto) 25.0 (10.0-50.0) % Gove % (Auto) 8.6 (2.0-14.0) % Eos % (Auto) 3.7 (0.0-5.0) % Baso % (Auto) 0.2 (0.0-2.0) % Neut # (Auto) 6.27 (1.40-7.00) K/uL Lymph # (Auto) 2.51 (0.50-3.50) K/uL Gove # (Auto) 0.86 (0.00-1.00) K/uL Eos # (Auto) 0.37 (0.00-0.50) K/uL Baso # (Auto) 0.02 (0.00-0.20) K/uL PT 10.0 (9.8-11.7) SEC INR 0.9 APTT 23.2 (22.1-29.8) SEC D-Dimer, Quantitative 2000 H (0-400) ng/mL Sodium (136-145) mmol/L Potassium (3.5-5.1) mmol/L Chloride (98-107) mmol/L Carbon Dioxide (21.0-32.0) mmol/L BUN (7-18) mg/dL Creatinine (0.51-1.17) mg/dL Est Cr Clr Drug Dosing mL/min Estimated GFR (MDRD) mL/min Glucose (74-106) mg/dL Hemoglobin A1c (4.3-5.7) % Lactic Acid (0.4-2.0) mmol/L Uric Acid (2.6-7.2) mg/dL Calcium (8.5-10.1) mg/dL Magnesium (1.8-2.4) mg/dL Iron (50-175) ug/dL TIBC (250-450) ug/dL % Saturation Ferritin (8-388) ng/mL Total Bilirubin (0.2-1.0) mg/dL AST (15-37) U/L ALT (12-78) U/L Alkaline Phosphatase (46-116) IU/L Creatine Kinase (26-308) U/L Creatine Kinase Index (0.0-2.5) % CK-MB (CK-2) (0.00-3.60) ng/mL Troponin I (0.000-0.056) ng/mL NT-Pro-B Natriuret Pep (0-125) pg/mL Total Protein (6.4-8.2) g/dL Albumin (3.4-5.0) g/dL Triglycerides (30-150) mg/dL Cholesterol (100-200) mg/dL LDL Cholesterol, Calc (0-100) mg/dL HDL Cholesterol (40-60) mg/dL TSH, Ultra Sensitive (0.358-3.740) mIU/mL Prolactin ng/mL HCG, Qual (NEGATIVE) 10/04/17 10/04/17 10/04/17 Range/Units 10:46 10:46 10:46 WBC (4.0-10.2) K/uL RBC (3.77-5.09) M/uL Hgb (11.7-15.5) g/dL Hct (34.0-46.0) % MCV (84.0-98.0) fL MCH (28.2-33.3) pg MCHC (31.7-36.0) g/dL RDW (11.2-14.1) % Plt Count (150-350) K/uL Neut % (Auto) (45.0-80.0) % Lymph % (Auto) (10.0-50.0) % Gove % (Auto) (2.0-14.0) % Eos % (Auto) (0.0-5.0) % Baso % (Auto) (0.0-2.0) % Neut # (Auto) (1.40-7.00) K/uL Lymph # (Auto) (0.50-3.50) K/uL Gove # (Auto) (0.00-1.00) K/uL Eos # (Auto) (0.00-0.50) K/uL Baso # (Auto) (0.00-0.20) K/uL PT (9.8-11.7) SEC INR APTT (22.1-29.8) SEC D-Dimer, Quantitative (0-400) ng/mL Sodium 138 (136-145) mmol/L Potassium 4.0 (3.5-5.1) mmol/L Chloride 102 (98-107) mmol/L Carbon Dioxide 27.1 (21.0-32.0) mmol/L BUN 13 (7-18) mg/dL Creatinine 0.76 (0.51-1.17) mg/dL Est Cr Clr Drug Dosing 76.51 mL/min Estimated GFR (MDRD) > 60 mL/min Glucose 104 (74-106) mg/dL Hemoglobin A1c (4.3-5.7) % Lactic Acid 1.6 (0.4-2.0) mmol/L Uric Acid 5.0 (2.6-7.2) mg/dL Calcium 8.7 (8.5-10.1) mg/dL Magnesium 1.7 L (1.8-2.4) mg/dL Iron (50-175) ug/dL TIBC (250-450) ug/dL % Saturation Ferritin (8-388) ng/mL Total Bilirubin 0.1 L (0.2-1.0) mg/dL AST 23 (15-37) U/L ALT 21 (12-78) U/L Alkaline Phosphatase 67 (46-116) IU/L Creatine Kinase 58 (26-308) U/L Creatine Kinase Index 1.7 (0.0-2.5) % CK-MB (CK-2) 1.00 (0.00-3.60) ng/mL Troponin I 0.010 (0.000-0.056) ng/mL NT-Pro-B Natriuret Pep 33 (0-125) pg/mL Total Protein 7.5 (6.4-8.2) g/dL Albumin 2.9 L (3.4-5.0) g/dL Triglycerides (30-150) mg/dL Cholesterol (100-200) mg/dL LDL Cholesterol, Calc (0-100) mg/dL HDL Cholesterol (40-60) mg/dL TSH, Ultra Sensitive 2.830 (0.358-3.740) mIU/mL Prolactin ng/mL HCG, Qual Negative (NEGATIVE) 10/04/17 10/04/17 10/04/17 Range/Units 10:46 15:20 15:20 WBC (4.0-10.2) K/uL RBC (3.77-5.09) M/uL Hgb (11.7-15.5) g/dL Hct (34.0-46.0) % MCV (84.0-98.0) fL MCH (28.2-33.3) pg MCHC (31.7-36.0) g/dL RDW (11.2-14.1) % Plt Count (150-350) K/uL Neut % (Auto) (45.0-80.0) % Lymph % (Auto) (10.0-50.0) % Gove % (Auto) (2.0-14.0) % Eos % (Auto) (0.0-5.0) % Baso % (Auto) (0.0-2.0) % Neut # (Auto) (1.40-7.00) K/uL Lymph # (Auto) (0.50-3.50) K/uL Gove # (Auto) (0.00-1.00) K/uL Eos # (Auto) (0.00-0.50) K/uL Baso # (Auto) (0.00-0.20) K/uL PT (9.8-11.7) SEC INR APTT (22.1-29.8) SEC D-Dimer, Quantitative (0-400) ng/mL Sodium (136-145) mmol/L Potassium (3.5-5.1) mmol/L Chloride (98-107) mmol/L Carbon Dioxide (21.0-32.0) mmol/L BUN (7-18) mg/dL Creatinine (0.51-1.17) mg/dL Est Cr Clr Drug Dosing mL/min Estimated GFR (MDRD) mL/min Glucose (74-106) mg/dL Hemoglobin A1c (4.3-5.7) % Lactic Acid (0.4-2.0) mmol/L Uric Acid (2.6-7.2) mg/dL Calcium (8.5-10.1) mg/dL Magnesium (1.8-2.4) mg/dL Iron 27 L (50-175) ug/dL TIBC 257 (250-450) ug/dL % Saturation 10.95207 Ferritin 42 (8-388) ng/mL Total Bilirubin (0.2-1.0) mg/dL AST (15-37) U/L ALT (12-78) U/L Alkaline Phosphatase (46-116) IU/L Creatine Kinase 53 (26-308) U/L Creatine Kinase Index 2.3 (0.0-2.5) % CK-MB (CK-2) 1.20 (0.00-3.60) ng/mL Troponin I 0.010 (0.000-0.056) ng/mL NT-Pro-B Natriuret Pep (0-125) pg/mL Total Protein (6.4-8.2) g/dL Albumin (3.4-5.0) g/dL Triglycerides (30-150) mg/dL Cholesterol (100-200) mg/dL LDL Cholesterol, Calc (0-100) mg/dL HDL Cholesterol (40-60) mg/dL TSH, Ultra Sensitive (0.358-3.740) mIU/mL Prolactin 22.7 ng/mL HCG, Qual (NEGATIVE) 10/04/17 10/05/17 10/05/17 Range/Units 21:15 06:37 06:37 WBC 8.1 (4.0-10.2) K/uL RBC 4.05 (3.77-5.09) M/uL Hgb 12.3 D (11.7-15.5) g/dL Hct 37.1 (34.0-46.0) % MCV 91.6 (84.0-98.0) fL MCH 30.4 (28.2-33.3) pg MCHC 33.2 (31.7-36.0) g/dL RDW 12.4 (11.2-14.1) % Plt Count 367 H (150-350) K/uL Neut % (Auto) 66.3 (45.0-80.0) % Lymph % (Auto) 19.3 (10.0-50.0) % Gove % (Auto) 9.0 (2.0-14.0) % Eos % (Auto) 5.2 H (0.0-5.0) % Baso % (Auto) 0.2 (0.0-2.0) % Neut # (Auto) 5.36 (1.40-7.00) K/uL Lymph # (Auto) 1.56 (0.50-3.50) K/uL Gove # (Auto) 0.73 (0.00-1.00) K/uL Eos # (Auto) 0.42 (0.00-0.50) K/uL Baso # (Auto) 0.02 (0.00-0.20) K/uL PT (9.8-11.7) SEC INR APTT (22.1-29.8) SEC D-Dimer, Quantitative 1790 H (0-400) ng/mL Sodium (136-145) mmol/L Potassium (3.5-5.1) mmol/L Chloride (98-107) mmol/L Carbon Dioxide (21.0-32.0) mmol/L BUN (7-18) mg/dL Creatinine (0.51-1.17) mg/dL Est Cr Clr Drug Dosing mL/min Estimated GFR (MDRD) mL/min Glucose (74-106) mg/dL Hemoglobin A1c (4.3-5.7) % Lactic Acid (0.4-2.0) mmol/L Uric Acid (2.6-7.2) mg/dL Calcium (8.5-10.1) mg/dL Magnesium (1.8-2.4) mg/dL Iron (50-175) ug/dL TIBC (250-450) ug/dL % Saturation Ferritin (8-388) ng/mL Total Bilirubin (0.2-1.0) mg/dL AST (15-37) U/L ALT (12-78) U/L Alkaline Phosphatase (46-116) IU/L Creatine Kinase 65 (26-308) U/L Creatine Kinase Index 1.8 (0.0-2.5) % CK-MB (CK-2) 1.20 (0.00-3.60) ng/mL Troponin I 0.000 (0.000-0.056) ng/mL NT-Pro-B Natriuret Pep (0-125) pg/mL Total Protein (6.4-8.2) g/dL Albumin (3.4-5.0) g/dL Triglycerides (30-150) mg/dL Cholesterol (100-200) mg/dL LDL Cholesterol, Calc (0-100) mg/dL HDL Cholesterol (40-60) mg/dL TSH, Ultra Sensitive (0.358-3.740) mIU/mL Prolactin ng/mL HCG, Qual (NEGATIVE) 10/05/17 10/05/17 10/06/17 Range/Units 06:37 06:37 07:19 WBC 10.5 H (4.0-10.2) K/uL RBC 4.41 (3.77-5.09) M/uL Hgb 13.3 (11.7-15.5) g/dL Hct 40.1 (34.0-46.0) % MCV 90.9 (84.0-98.0) fL MCH 30.2 (28.2-33.3) pg MCHC 33.2 (31.7-36.0) g/dL RDW 12.6 (11.2-14.1) % Plt Count 404 H (150-350) K/uL Neut % (Auto) 66.2 (45.0-80.0) % Lymph % (Auto) 21.7 (10.0-50.0) % Gove % (Auto) 8.9 (2.0-14.0) % Eos % (Auto) 2.9 (0.0-5.0) % Baso % (Auto) 0.3 (0.0-2.0) % Neut # (Auto) 6.92 (1.40-7.00) K/uL Lymph # (Auto) 2.27 (0.50-3.50) K/uL Gove # (Auto) 0.93 (0.00-1.00) K/uL Eos # (Auto) 0.30 (0.00-0.50) K/uL Baso # (Auto) 0.03 (0.00-0.20) K/uL PT (9.8-11.7) SEC INR APTT (22.1-29.8) SEC D-Dimer, Quantitative (0-400) ng/mL Sodium 139 (136-145) mmol/L Potassium 3.9 (3.5-5.1) mmol/L Chloride 99 (98-107) mmol/L Carbon Dioxide 30.3 (21.0-32.0) mmol/L BUN 13 (7-18) mg/dL Creatinine 0.89 (0.51-1.17) mg/dL Est Cr Clr Drug Dosing 65.31 mL/min Estimated GFR (MDRD) > 60 mL/min Glucose 99 (74-106) mg/dL Hemoglobin A1c 5.7 (4.3-5.7) % Lactic Acid (0.4-2.0) mmol/L Uric Acid (2.6-7.2) mg/dL Calcium 9.0 (8.5-10.1) mg/dL Magnesium (1.8-2.4) mg/dL Iron (50-175) ug/dL TIBC (250-450) ug/dL % Saturation Ferritin (8-388) ng/mL Total Bilirubin 0.3 (0.2-1.0) mg/dL AST 29 (15-37) U/L ALT 23 (12-78) U/L Alkaline Phosphatase 69 (46-116) IU/L Creatine Kinase 50 (26-308) U/L Creatine Kinase Index 1.6 (0.0-2.5) % CK-MB (CK-2) 0.80 (0.00-3.60) ng/mL Troponin I 0.000 (0.000-0.056) ng/mL NT-Pro-B Natriuret Pep (0-125) pg/mL Total Protein 8.5 H (6.4-8.2) g/dL Albumin 3.3 L (3.4-5.0) g/dL Triglycerides 149 (30-150) mg/dL Cholesterol 162 (100-200) mg/dL LDL Cholesterol, Calc 73 (0-100) mg/dL HDL Cholesterol 59 (40-60) mg/dL TSH, Ultra Sensitive (0.358-3.740) mIU/mL Prolactin ng/mL HCG, Qual (NEGATIVE) 10/06/17 Range/Units 07:19 WBC (4.0-10.2) K/uL RBC (3.77-5.09) M/uL Hgb (11.7-15.5) g/dL Hct (34.0-46.0) % MCV (84.0-98.0) fL MCH (28.2-33.3) pg MCHC (31.7-36.0) g/dL RDW (11.2-14.1) % Plt Count (150-350) K/uL Neut % (Auto) (45.0-80.0) % Lymph % (Auto) (10.0-50.0) % Gove % (Auto) (2.0-14.0) % Eos % (Auto) (0.0-5.0) % Baso % (Auto) (0.0-2.0) % Neut # (Auto) (1.40-7.00) K/uL Lymph # (Auto) (0.50-3.50) K/uL Gove # (Auto) (0.00-1.00) K/uL Eos # (Auto) (0.00-0.50) K/uL Baso # (Auto) (0.00-0.20) K/uL PT (9.8-11.7) SEC INR APTT (22.1-29.8) SEC D-Dimer, Quantitative (0-400) ng/mL Sodium 138 (136-145) mmol/L Potassium 4.0 (3.5-5.1) mmol/L Chloride 99 (98-107) mmol/L Carbon Dioxide 31.6 (21.0-32.0) mmol/L BUN 19 H (7-18) mg/dL Creatinine 0.98 (0.51-1.17) mg/dL Est Cr Clr Drug Dosing 59.31 mL/min Estimated GFR (MDRD) > 60 mL/min Glucose 108 H (74-106) mg/dL Hemoglobin A1c (4.3-5.7) % Lactic Acid (0.4-2.0) mmol/L Uric Acid (2.6-7.2) mg/dL Calcium 9.7 (8.5-10.1) mg/dL Magnesium (1.8-2.4) mg/dL Iron (50-175) ug/dL TIBC (250-450) ug/dL % Saturation Ferritin (8-388) ng/mL Total Bilirubin (0.2-1.0) mg/dL AST (15-37) U/L ALT (12-78) U/L Alkaline Phosphatase (46-116) IU/L Creatine Kinase (26-308) U/L Creatine Kinase Index (0.0-2.5) % CK-MB (CK-2) (0.00-3.60) ng/mL Troponin I (0.000-0.056) ng/mL NT-Pro-B Natriuret Pep (0-125) pg/mL Total Protein (6.4-8.2) g/dL Albumin (3.4-5.0) g/dL Triglycerides (30-150) mg/dL Cholesterol (100-200) mg/dL LDL Cholesterol, Calc (0-100) mg/dL HDL Cholesterol (40-60) mg/dL TSH, Ultra Sensitive (0.358-3.740) mIU/mL Prolactin ng/mL HCG, Qual (NEGATIVE) SANJEEV Results - Last 24 hrs: Microbiology 10/04/17 19:10 Stool Occult Blood (SANJEEV) - Final Stool / Feces NEGATIVE OCCULT BLOOD Microbiology 10/04/17 19:10 Stool / Feces Stool Occult Blood (SANJEEV) - Final NEGATIVE OCCULT BLOOD Med Orders - Current: Current Medications Acetaminophen (Tylenol) 650 mg PO Q4HR PRN PRN Reason: Pain Last Admin: 10/06/17 08:18 Dose: 650 mg Amitriptyline HCl (Elavil) 50 mg PO BEDTIME [facility] Last Admin: 10/05/17 19:53 Dose: 50 mg Baclofen (Lioresal) 10 mg PO BID [facility] Last Admin: 10/06/17 08:10 Dose: 10 mg Ferrous Sulfate (Ferrous Sulfate) 325 mg PO BIDMEALS [facility] Last Admin: 10/06/17 08:09 Dose: 325 mg Furosemide (Lasix) 40 mg IVPUSH Q8H [facility] Last Admin: 10/06/17 01:00 Dose: 40 mg Gabapentin (Neurontin) 300 mg PO TID [facility] Last Admin: 10/06/17 08:10 Dose: 300 mg Magnesium Oxide (Magnesium Oxide) 400 mg PO QPM [facility] Last Admin: 10/05/17 17:29 Dose: 400 mg Omeprazole (Omeprazole) 20 mg PO DAILY [facility] Last Admin: 10/06/17 08:10 Dose: 20 mg Ondansetron HCl (Zofran Odt) 4 mg PO QID PRN PRN Reason: Nausea Last Admin: 10/06/17 08:20 Dose: 4 mg Potassium Chloride (Klor-Con M20) 20 meq PO TID [facility] Last Admin: 10/06/17 08:10 Dose: 20 meq Sodium Chloride (Saline Flush) 10 ml FLUSH ASDIRECTED PRN PRN Reason: Keep Vein Open Last Admin: 10/05/17 02:57 Dose: 10 ml Sodium Chloride (Saline Flush) 10 ml FLUSH Q12HR PRN PRN Reason: Keep Vein Open Last Admin: 10/06/17 01:01 Dose: 10 ml Discontinued Medications Hydrocodone Bitart/Acetaminophen ([place] 325-7.5 Mg) 1 tab PO Q4HR PRN PRN Reason: Pain (moderate 4-6) Famotidine (Pepcid) 40 mg IVPUSH ONETIME ONE Stop: 10/04/17 10:48 Last Admin: 10/04/17 13:22 Dose: 40 mg Famotidine (Pepcid) Confirm Administered Dose 40 mg .ROUTE .STK-MED ONE Stop: 10/04/17 13:22 Last Admin: 10/04/17 14:21 Dose: Not Given Iopamidol (Isovue-370 (76%)) 100 ml IVPUSH ONETIME ONE Stop: 10/04/17 12:34 Last Admin: 10/04/17 13:02 Dose: 100 ml Magnesium Citrate (Citrate Of Magnesia) 0 ml PO ONETIME ONE Stop: 10/04/17 15:01 Last Admin: 10/04/17 15:58 Dose: 296 ml Polyethylene Glycol (Miralax) 17 gm PO ONETIME ONE Stop: 10/04/17 15:01 Last Admin: 10/04/17 15:58 Dose: 17 gm - Exam Quality Assessment: Reports: Supplemental Oxygen, DVT Prophylaxis. Denies: Central Line/PICC, Urine Catheter, Skin Breakdown, Restraints General: Reports: Alert, Oriented, Cooperative, No Acute Distress HEENT: Reports: Pupils Equal, Pupils Reactive, EOMI, Mucous Membr. Moist/[place] Neck: Reports: Supple, Trachea Midline, No JVD, No Thyromegaly, Other ( Otherwise as per Subjective). Denies: +2 Carotid Pulse wo Bruit Lungs: Reports: Clear to Auscultation, Normal Respiratory Effort. Denies: Rub Cardiovascular: Reports: Regular Rate, Regular Rhythm, No Murmurs. Denies: Gallops, Rubs GI/Abdominal Exam: Normal Bowel Sounds, Soft, Non-Tender, No Organomegaly, No Distention, No Abnormal Bruit, No Mass. No: Guarding (Female) Exam: Deferred Rectal (Female) Exam: Deferred Back Exam: Reports: Normal Inspection, Full Range of Motion. Denies: CVA Tenderness (L), CVA Tenderness (R), Muscle Spasm Extremities: Normal Inspection, Normal Range of Motion, Non-Tender, No Pedal Edema, Normal Capillary Refill. No: Cayla's Sign Skin: Reports: Ecchymosis (And postoperative cervical wound as per Subjective) Wound/Incisions: Reports: Healing Well, Drainage (Minimal). Denies: Erythema, Erythema Improving Neurological: Reports: No New Focal Deficit, Other (No clinical orthostasis) Psy/Mental Status: Reports: Alert, Normal Affect, Normal Mood. Denies: Hallucinations, Withdrawal Symptoms
[2017-10-06 10:11] VITALS: BP 117/64
== END 2017-10-06 12:13 | disposition home or self-care (01) ==
LOC: LL.ED 10:33 → UNDOADMOB 13:59 → LL.MS 13:59
PROVIDERS: ADMIT Family Medicine; ATTEND Emergency Medicine
DX: R55 Syncope and collapse (principal); R79.89 Other specified abnormal findings of blood chemistry; K59.03 Drug induced constipation; D50.8 Other iron deficiency anemias; E83.42 Hypomagnesemia; E88.09 Other disorders of plasma-protein metabolism, not elsewhere classified; N20.0 Calculus of kidney; M15.0 Primary generalized (osteo)arthritis; J43.1 Panlobular emphysema; Z71.6 Tobacco abuse counseling; Z79.899 Other long term (current) drug therapy; Z88.2 Allergy status to sulfonamides; Z91.09 Other allergy status, other than to drugs and biological substances
CPT/HCPCS: 36415; 71275; 74022; 80048; 80053; 80061; 82272; 82306; 82550; 82553; 82728; 83036; 83540; 83550; 83605; 83735; 83880; 84146; 84443; 84484; 84550; 84703; 85025; 85379; 85610; 85730; 87338; 93005; 93306; 93970; 96374; 96375; 96376; 99285; A9270-GY; G0378; J1940; J7050; Q9967; S0028

== ENCOUNTER 2019-08-17 00:51 | Emergency (ER) | payer BC ==
[2019-08-17 01:05] VITALS: BP 132/65; PULSE 110
[2019-08-17] MEDS ORDERED: Pantoprazole 40 MG Vial IVPUSH ONE (01:21)
[2019-08-17] MEDS ORDERED: Lactated Ringers 1,000 ML IV ONE (01:21)
[2019-08-17] MEDS ORDERED: Famotidine 20 MG/2 ML SDV IVPUSH ONE (01:21)
[2019-08-17] MEDS ORDERED: Ondansetron 4 MG/2 ML SDV IVPUSH ONE (01:21)
--- NOTE | 2019-08-17 01:21 | EDM.PDOC ---
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 SNOMED Code(s): 967273571, 179198638, [id number] Code(s): Z71.6 - TOBACCO ABUSE COUNSELING Status: Chronic Priority: Medium Annotation/Comment:: Continued tobacco smoke exposure from her . Stop all tobacco exposure ROOPA as directed/per provided information and consider contacting [facility], etc.. (8) Hypomagnesemia SNOMED Code(s): 701686396 Code(s): E83.42 - HYPOMAGNESEMIA Status: Acute Priority: Medium Onset Date: 06/12/15 Annotation/Comment:: She has been noncompliant with her previous Magnesium oxide therapy, which would also be beneficial for her headaches. Magnesium sulfate IV infusion given today with resumption of her magnesium oxide therapy. Close follow-up by regular provider. - Problem List Review Problem List Initiated/Reviewed/Updated: Yes - My Orders Last 24 Hours: My Active Orders 08/17/19 01:20 CULTURE STREP A CONFIRMATION [RM] Stat STREP SCRN A RAPID W CULT CONF [RM] Stat 08/17/19 01:21 Abdomen Series w Chest 1V [CR] Stat Obtain Past Medical Record [OM.PC] Urgent Peripheral IV Insertion Adult [OM.PC] Stat Resuscitation Status Stat 08/17/19 01:22 Peripheral IV Care [RC] . DIRECTED - Assessment/Plan Last 24 Hours: My Active Orders 08/17/19 01:20 CULTURE STREP A CONFIRMATION [RM] Stat STREP SCRN A RAPID W CULT CONF [RM] Stat 08/17/19 01:21 Abdomen Series w Chest 1V [CR] Stat Obtain Past Medical Record [OM.PC] Urgent Peripheral IV Insertion Adult [OM.PC] Stat Resuscitation Status Stat 08/17/19 01:22 Peripheral IV Care [RC] . DIRECTED Assessment:: As above. Plan: As above. Extensive precautions were given to the patient, who is in agreement with the treatment plan. See Patient Instructions for further treatment and plan.
[2019-08-17] MEDS: Sodium Chloride 0.9% 10 ML Syringe FLUSH PRN ×2 (01:27→02:54)
[2019-08-17 01:45] LABS: PTT,PARTIAL THROMBOPLSTIN TIME 22.7 SEC (24.5-32.8)
[2019-08-17 01:46] LABS: CHLORIDE,CL 100 mmol/L (98-107); SODIUM,NA 135 mmol/L (136-145)
[2019-08-17] MEDS ORDERED: Magnesium Sulfate/Water 4 GM in Premix Bag 1 BAG IV ONE (02:05)
== END 2019-08-17 02:57 | disposition home or self-care (01) ==
LOC: LL.ED 00:51
DX: N20.0 Calculus of kidney (principal); A08.4 Viral intestinal infection, unspecified; F41.8 Other specified anxiety disorders; E83.42 Hypomagnesemia; M15.0 Primary generalized (osteo)arthritis; M79.7 Fibromyalgia; J44.9 Chronic obstructive pulmonary disease, unspecified; K21.9 Gastro-esophageal reflux disease without esophagitis; F41.9 Anxiety disorder, unspecified; F32.9 Major depressive disorder, single episode, unspecified; E66.9 Obesity, unspecified; Z88.2 Allergy status to sulfonamides; Z91.09 Other allergy status, other than to drugs and biological substances; Z79.899 Other long term (current) drug therapy; Z87.891 Personal history of nicotine dependence
CPT/HCPCS: 36415; 74022; 80053; 82150; 83605; 83690; 83735; 84550; 84703; 85025; 85610; 85730; 87081; 87430; 87804; 96361; 96365; 96375; 99284; C9113; J2405; J3475; J3490; J7120

== ENCOUNTER 2020-10-02 23:02 | Emergency (ER) | payer OTHER ==
[2020-10-02 23:05] VITALS: BP 118/75; PULSE 80
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
[2020-10-02] MEDS ORDERED: Sodium Chloride 0.9% 10 ML Syringe FLUSH PRN (23:35)
[2020-10-02] MEDS ORDERED: cefTRIAXone 2 GM Vial IVPUSH ONE (23:35)
[2020-10-03] LABS: CHLORIDE,CL 101 mmol/L (98-107); SODIUM,NA 138 mmol/L (136-145)
== END 2020-10-03 00:29 | disposition home or self-care (01) ==
LOC: LL.ED 23:02
DX: T81.40XA Infection following a procedure, unspecified, initial encounter (principal); L03.221 Cellulitis of neck; J43.1 Panlobular emphysema; M15.0 Primary generalized (osteo)arthritis; D50.8 Other iron deficiency anemias; Z87.891 Personal history of nicotine dependence; E11.9 Type 2 diabetes mellitus without complications; I25.2 Old myocardial infarction; I10 Essential (primary) hypertension; K21.9 Gastro-esophageal reflux disease without esophagitis; E03.9 Hypothyroidism, unspecified; E66.9 Obesity, unspecified; Z68.30 Body mass index [BMI] 30.0-30.9, adult; Z79.899 Other long term (current) drug therapy; Z88.2 Allergy status to sulfonamides; Z91.09 Other allergy status, other than to drugs and biological substances; Z68.32 Body mass index [BMI] 32.0-32.9, adult
CPT/HCPCS: 36415; 80053; 83605; 85025; 87070; 87205; 96374; 99284; 99284-25; J0696

== ENCOUNTER 2023-11-28 14:43 | Emergency (ER) | payer MEDICARE ==
[2023-11-28 14:51] VITALS: BP 128/80; PULSE 82
[2023-11-28] MEDS: Diphtheria,Pertussis(Acell),Tetanus Vaccine 0.5 ML Syringe IM ONE (15:00)
[2023-11-28] MEDS: Lidocaine 1% 5 ML VIAL INJECT ONE (15:34)
[2023-11-28] MEDS: Bacitracin Oint 1 GM U/D Packet TOP ONE (15:34)
== END 2023-11-28 16:00 | disposition home or self-care (01) ==
LOC: LL.ED 14:43
DX: S61.012A Laceration without foreign body of left thumb without damage to nail, initial encounter (principal); J44.9 Chronic obstructive pulmonary disease, unspecified; K21.9 Gastro-esophageal reflux disease without esophagitis; E66.9 Obesity, unspecified; Z87.891 Personal history of nicotine dependence; Z79.899 Other long term (current) drug therapy; Z88.2 Allergy status to sulfonamides; Z91.048 Other nonmedicinal substance allergy status; W26.0XXA Contact with knife, initial encounter
CPT/HCPCS: 12001; 90471; 90715; 99282-25; J3490

== ENCOUNTER 2024-11-16 14:18 | Emergency (ER) | payer MEDICARE ==
[2024-11-16 14:41] LABS: BASOPHILS ABSOLUTE AUTO 0.04 K/uL (0.00-0.20); BASOPHILS PERCENT AUTO 0.4 % (0.0-2.0); EOSINOPHILS ABSOLUTE AUTO 0.18 K/uL (0.00-0.50); HEMATOCRIT 38.6 % (34.0-46.0); HEMOGLOBIN 13.1 g/dL (11.7-15.5); LYMPHOCYTES ABSOLUTE AUTO 3.05 K/uL (0.50-3.50); LYMPHOCYTES PERCENT AUTO 33.5 % (10.0-50.0); MEAN CORPUSCULAR HEMOGLOBIN 30.5 pg (28.2-33.3); MEAN CORPUSCULAR HGB CONC 33.9 g/dL (31.7-36.0); MEAN CORPUSCULAR VOLUME 89.8 fL (84.0-98.0); MONOCYTES ABSOLUTE AUTO 0.74 K/uL (0.00-1.00); MONOCYTES PERCENT AUTO 8.1 % (2.0-14.0); PLATELET COUNT,PLT 227 K/uL (150-350); RED CELL DISTRIBUTION WIDTH 12.6 % (11.2-14.1); WHITE BLOOD CELL COUNT,WBC 9.1 K/uL (4.0-10.2)
[2024-11-16] MEDS: Ondansetron 4 MG/2 ML SDV IVPUSH ONE (14:43)
[2024-11-16] MEDS: Sodium Chloride 0.9% 10 ML Syringe FLUSH PRN (14:44)
[2024-11-16 15:11] LABS: ALANINE AMINOTRANSFERASE,ALT 19 U/L (12-78); ALBUMIN 3.1 g/dL (3.4-5.0); ALKALINE PHOSPHATASE 67 IU/L (46-116); ANION GAP 8.5 meq/L (7-15); ASPARTATE AMNIOTRANSFERASE,AST 15 U/L (15-37); BILIRUBIN TOTAL 0.3 mg/dL (0.2-1.0); BLOOD UREA NITROGEN,BUN 21 mg/dL (7-18); CALCIUM 8.9 mg/dL (8.5-10.1); CARBON DIOXIDE,CO2 26.5 mmol/L (21.0-32.0); CHLORIDE,CL 102 mmol/L (98-107); CREATININE 0.99 mg/dL (0.51-1.17); GLUCOSE RANDOM 88 mg/dL (70-99); POTASSIUM,K 3.7 mmol/L (3.5-5.1); PROTEIN TOTAL,TP 7.2 g/dL (6.4-8.2); SODIUM,NA 137 mmol/L (136-145)
[2024-11-16 15:15] LABS: ESTIMATED GFR 68 mL/min (>=60)
[2024-11-16 16:10] LABS: APPEARANCE,URINE CLEAR; BILIRUBIN,URINE NEGATIVE (NEGATIVE); COLOR,URINE YELLOW; GLUCOSE,URINE NEGATIVE (NEGATIVE); KETONES,URINE NEGATIVE (NEGATIVE); LEUKOCYTE ESTERASE,URINE NEGATIVE (NEGATIVE); NITRITE,URINE NEGATIVE (NEGATIVE); OCCULT BLOOD,URINE SMALL (NEGATIVE); PH,URINE 5.5 (5.0-9.0); PROTEIN,URINE NEGATIVE (NEGATIVE); UROBILINOGEN,URINE 0.2 E.U./dL (0.2-1.0)
[2024-11-16 16:21] LABS: EPITHELIAL CELLS,URINE FEW /LPF; MUCUS,URINE FEW /LPF (NEGATIVE); RBC,URINE 0-5 /HPF; WBC,URINE 0-5 /HPF
[2024-11-16 21:16] VITALS: BP 110/58; PULSE 68
== END 2024-11-16 17:30 | disposition home or self-care (01) ==
LOC: SUPCPDRO 14:18 → LL.ED 14:18
DX: K52.9 Noninfective gastroenteritis and colitis, unspecified (principal); Z91.048 Other nonmedicinal substance allergy status; Z88.2 Allergy status to sulfonamides; Z79.899 Other long term (current) drug therapy
CPT/HCPCS: 36415; 71045; 80053; 81001; 84484; 85025; 93005; 96374; 99284-25; J2405

== ENCOUNTER 2025-01-09 09:22 | Emergency (ER) | payer MEDICARE ==
[2025-01-09 09:43] LABS: APPEARANCE,URINE SLIGHTLY CLOUDY; GLUCOSE,URINE NEGATIVE (NEGATIVE); OCCULT BLOOD,URINE MODERATE (NEGATIVE)
[2025-01-09 10:05] LABS: BASOPHILS ABSOLUTE AUTO 0.02 K/uL (0.00-0.20); BASOPHILS PERCENT AUTO 0.1 % (0.0-2.0); EOSINOPHILS ABSOLUTE AUTO 0.06 K/uL (0.00-0.50); EOSINOPHILS PERCENT AUTO 0.4 % (0.0-5.0); IMMATURE GRAN ABSOLUTE AUTO 0.02 10^3/uL (0.00-0.04); IMMATURE GRAN PERCENT AUTO 0.1 % (0.0-0.4); LYMPHOCYTES ABSOLUTE AUTO 1.96 K/uL (0.50-3.50); LYMPHOCYTES PERCENT AUTO 13.2 % (10.0-50.0); MONOCYTES ABSOLUTE AUTO 1.20 K/uL (0.00-1.00); MONOCYTES PERCENT AUTO 8.1 % (2.0-14.0); NEUTROPHILS ABSOLUTE AUTO 11.57 K/uL (1.40-7.00); NEUTROPHILS PERCENT AUTO 78.1 % (45.0-80.0); PLATELET COUNT,PLT 210 K/uL (150-350); RED BLOOD CELL COUNT 4.56 M/uL (3.77-5.09); RED CELL DISTRIBUTION WIDTH 11.9 % (11.2-14.1); WHITE BLOOD CELL COUNT,WBC 14.8 K/uL (4.0-10.2)
[2025-01-09 10:24] LABS: ALANINE AMINOTRANSFERASE,ALT 20.0 U/L (12-78); ASPARTATE AMNIOTRANSFERASE,AST 13.0 U/L (15-37); BILIRUBIN TOTAL 1.0 mg/dL (0.2-1.0); BLOOD UREA NITROGEN,BUN 11.0 mg/dL (7-18); CARBON DIOXIDE,CO2 28.8 mmol/L (21.0-32.0); CHLORIDE,CL 103.0 mmol/L (98-107); CREATININE 1.09 mg/dL (0.51-1.17); EST CRCL DRUG DOSING (CG) 47.21 mL/min; GLUCOSE RANDOM 114.0 mg/dL (70-99); POTASSIUM,K 4.0 mmol/L (3.5-5.1); PROTEIN TOTAL,TP 7.7 g/dL (6.4-8.2); SODIUM,NA 139.0 mmol/L (136-145)
[2025-01-09 10:25] LABS: ESTIMATED GFR 61.0 mL/min (>=60)
[2025-01-09] MEDS ORDERED: Sodium Chloride 0.9% 10 ML Syringe FLUSH PRN (10:33)
[2025-01-09] MEDS: Ketorolac 15 MG/ML SDV IVPUSH ONE (10:49)
[2025-01-09] MEDS: Ondansetron 4 MG/2 ML SDV IVPUSH ONE (10:50)
[2025-01-09 13:01] LABS: APPEARANCE,URINE CLEAR; GLUCOSE,URINE NEGATIVE (NEGATIVE); OCCULT BLOOD,URINE TRACE-INTACT (NEGATIVE)
[2025-01-09 13:06] LABS: EPITHELIAL CELLS,URINE FEW /LPF
[2025-01-09] MEDS: Iopamidol 612 MG/ML 100 ML Bottle IVPUSH ONE (13:39)
[2025-01-09 13:50] VITALS: BP 104/63; PULSE 66
== END 2025-01-09 14:58 | disposition home or self-care (01) ==
LOC: LL.ED 09:22
DX: K57.92 Diverticulitis of intestine, part unspecified, without perforation or abscess without bleeding (principal); J44.9 Chronic obstructive pulmonary disease, unspecified; M19.90 Unspecified osteoarthritis, unspecified site; Z88.2 Allergy status to sulfonamides; Z88.8 Allergy status to other drugs, medicaments and biological substances; Z79.899 Other long term (current) drug therapy; Z86.16 Personal history of COVID-19; Z90.49 Acquired absence of other specified parts of digestive tract
CPT/HCPCS: 36415; 74019; 74177; 80053; 81001; 85025; 87086; 96361; 96374; 96375; 99284; A9270; J1885; J2405; J7030; Q9967